=== PATIENT | female | born 1960 | race African-American/Black ===

== ENCOUNTER 2020-06-29 08:32 | Emergency (ER) | payer OTHER ==
--- OUTSIDE RECORDS SUMMARY | 2020-06-29 08:35 | XMS REPORT | Encounter Summary ---
:1960 Author Care Team Providers Name Role Phone Kandi Sands Primary Care Provider [phone] Ganesh Taylor Child Care Counselor [phone] Car Bae MD Neurosurgeon [phone] Mercedez Jaimes (Rheumatologie) Pulp Machine Operator [phone] Reason for Visit None recorded. Instructions 1. Peripheral edema BNP (B-type natriuretic pe ptide), serum or plasma US, echocardiogram 2. Hyperlipidemia CMP, serum or plasma CBC w/ auto diff lipid panel, serum high cholesterol: care ins tructions 3. Body mass index 40+ - severel y obese body mass index: care inst ructions learning about healthy mega ght starting a weight loss marisa n: care instructions when you are overweight: c are instructions obesity education informat ion learning about obesity 4. Bereavement grief (actual/anticipated) : care instructions behavioral health referral Discussion Note: None recorded. Plan of Care Reminders Provider Appointments Est Pt Estela Vallecillo 07/08/2020 MD Verena 10:00AM Lab CMP, Serum or Lab radha [facility] Plasma 04/23/2020 CBC W/ Auto Diff [facility] 04/23/2020 Lipid Panel, [facility] Serum 04/23/2020 BNP (B-type [facility] Natriuretic Peptide), Serum 04/23/2020 or Plasma Referral Behavioral Health Referral 04/22/2020 Procedures None recorded. Surgeries None recorded. Imaging US, [facility] Echocardiogram 04/22/[address] [facility] (Cardiopulmonary ) Medications Name Start Date Advair Diskus 250 mcg-50 mcg/dose powder for inhalatio n INHALE 1 PUFF TWICE DAILY Dexilant 60 mg capsule, delayed release TAKE ONE (1) CAPSULE(S) BY MOUTH DAILY. diazepam 5 mg tablet TAKE ONE (1) TABLET(S) BY MOUTH THREE TIMES A DAY NEEDED FOR SPASMS. diclofenac 1 % topical gel APPLY 2 grams TO THE AFFECTED AREA 3 TO 4 TIMES DAILY NEEDED FOR PAIN diclofenac 75 mg-misoprostol 200 mcg tablet,immediate, delayed release TAKE 1 TABLET BY MOUTH TWICE DAILY dicyclomine 10 mg capsule Take 1 capsule 3 times a day by oral route. fluticasone propionate 50 mcg/actuation nasal spray,fya spension INHALE 2 SPRAY(S) IN EACH NOSTRIL TWICE A DAY BY INTR ANASAL ROUTE FOR 30 DAYS. folic acid 1 mg tablet TAKE 1 TABLET BY ORAL ROUTE 1 TIME PER DAY furosemide 40 mg tablet TAKE ONE (1) TABLET(S) BY MOUTH TWICE A DAY. gabapentin 800 mg tablet TAKE ONE (1) TABLET(S) BY MOUTH FOUR TIMES A DAY FOR 28 DAYS. hydroxychloroquine 200 mg tablet TAKE 1 TABLET BY MOUTH TWICE DAILY leflunomide 20 mg tablet Take 1 tablet every day by oral route for 30 days. levocetirizine 5 mg tablet TAKE 1 TABLET BY ORAL ROUTE 1 TIME PER DAY AT BEDTIME FOR ALLERGIES lisinopril 20 mg-hydrochlorothiazide 25 mg tablet TAKE 1 TABLET(S) TWICE A DAY BY ORAL ROUTE FOR 90 DAY S. metaxalone 800 mg tablet TAKE ONE (1) TABLET(S) BY MOUTH TWICE A DAY. methocarbamol 750 mg tablet TAKE ONE (1) TABLET(S) BY MOUTH THREE TIMES A DAY. montelukast 10 mg tablet TAKE 1 TABLET BY MOUTH EVERY DAY naftifine 2 % topical cream APPLY 2 TO 4 GRAMS TO THE AFFECTED AREA 2 TIMES DAILY (USE ALONG WITH UREA) omeprazole 40 mg capsule,delayed release Take 1 capsule every day by oral route. ondansetron [address] 1 TABLET(S) 3 TIMES A DAY BY TRANSLINGUAL ROUTE DIRECTED. Plavix 75 mg tablet Take 1 tablet every day by oral route. potassium chloride ER 20 mEq tablet,extended release TAKE ONE (1) TABLET(S) BY MOUTH TWICE A DAY. ProAir HFA 90 mcg/actuation aerosol inhaler INHALE 2 PUFFS FOUR TIMES DAILY NEEDED FOR WHEEZIN G Spiriva with HandiHaler 18 mcg and inhalation capsules USE 1 CAPSULE BY INHALATION ROUTE 1 TIME PER DAY sucralfate 1 gram tablet TAKE ONE (1) TABLET(S) BY MOUTH FOUR TIMES A DAY. sumatriptan 25 mg tablet TAKE ONE TABLET BY MOUTH EVERY DAY AT O NSET OF HEADACHE , MAY REPEAT AFTER 2 HOURS IF HEADACHE PERSISTS tizanidine 4 mg tablet TAKE ONE (1) TABLET(S) BY MOUTH THREE TIMES A DAY. trazodone 150 mg tablet TAKE 2 TAB(S) BY MOUTH AT BEDTIME FOR SLEEP urea 40% APPLY 2 TO 4 GRAMS TO THE AFFECTED AREA TWICE DAILY Medications Administered None recorded. Vitals Height Weight BMI Blood Pressure 5 ft 2 in 223 lbs 40.8 kg/m2 110/72 mm[Hg] Results Lab Results Date Name Specimen Result Interpretation Description Value Range Status Address 04/25/2020 CBC W/ Auto Wbc 4.5 3.4-10.8 Final [facility] Diff x10e3/uL x10e3/uL [facility]: [address] Rbc 4.45 3.77-5.28 Final [facility] x10e6/uL x10e6/uL P[facility]: [address] Below Hemoglobin 10.8 g/dL 11.1-15.9 Final [facility] Low g/dL P[facility]: [address] Hematocrit 34.4 % 34.0-46.6 Final [facility] % [facility]: [address] Below Mcv 77 fL 79-97 fL Final [facility] Low PSC: [address] Below Mch 24.3 pg 26.6-33.0 Final [facility] Low pg PSC: [address] Below Mchc 31.4 g/dL 31.5-35.7 Final [facility] Low g/dL P[facility]: [address] Above Rdw 15.6 % 11.7-15.4 Final [facility] High % PSC: [address] Platelets 189 150-450 Final [facility] x10e3/uL x10e3/uL PSC: [address] Neutrophils 40 % not Final [facility] or[facility] estab. % PSC: [address] Lymphs 45 % not Final [facility] estab. % PSC: [address] Monocytes 10 % not Final [facility] estab. % PSC: [address] Eos 3 % not Final [facility] estab. % PSC: [address] Basos 1 % not Final [facility] estab. % PSC: [address] Immature engineer chief Cancelled [facility] or[facility] Cells PSC: [address] Neutrophils 1.8 1.4-7.0 Final Lab radha (Absolute) x10e3/uL x10e3/uL PS C: [address] Lymphs 2.1 0.7-3.1 Final [facility] (Absolute) x10e3/uL x10e3/uL PS C: [address] Monocytes(ab 0.5 0.1-0.9 Final [facility] solute) x10e3/uL x10e3/uL PSC: [address] Eos 0.1 0.0-0.4 Final [facility] (Absolute) x10e3/uL x10e3/uL PS C: [address] Baso 0.0 0.0-0.2 Final [facility] (Absolute) x10e3/uL x10e3/uL PS C: [address] Immature 1 % not Final [facility] Granulocytes estab. % PS C: [address] Immature 0.0 0.0-0.1 Final [facility] Grans (Abs) x10e3/uL x10e3/uL P SC: [address] Nrbc engineer chief Cancelled [facility] PSC: [address] Hematology engineer chief Cancelled [facility] Comments: PSC: [address] 04/25/2020 CMP, Serum or Glucose 92 mg/dL 65-99 Fi nal [facility] Plasma mg/dL PSC: [address] Bun 24 mg/dL 6-24 Final [facility] mg/dL PSC: [address] Creatinine 0.93 0.57-1.00 Final [facility] mg/dL mg/dL PSC: [address] eGFR If 68 >59 Final [facility] Nonafricn AM mL/min/1. mL/min/1. PSC: Shemar [address] eGFR If 78 >59 Final [facility] Africn AM mL/min/1. mL/min/1. P SC: [address] Above BUN/creatini 26 9-23 Final Lab radha High ne Ratio PSC: [address] Sodium 142 134-144 Final [facility] mmol/L mmol/L PSC: [facility] [address] Potassium 3.5 3.5-5.2 Final [facility] mmol/L mmol/L PSC: [facility] [address] Chloride 102 96-106 Final [facility] mmol/L mmol/L PSC: [facility] [address] Carbon 26 mmol/L 20-29 Final [facility] Dioxide, mmol/L PSC: [address] Calcium 9.9 mg/dL 8.7-10.2 Final Lab radha mg/dL PSC: [facility] [address] Protein, 6.8 g/dL 6.0-8.5 Final [facility] Total g/dL PSC: [facility] [address] Albumin 4.3 g/dL 3.8-4.9 Final [facility] g/dL PSC: [facility] [address] Globulin, 2.5 g/dL 1.5-4.5 Final Lab radha Total g/dL PSC: [facility] [address] A/g Ratio 1.7 1.2-2.2 Final [facility] PSC: [facility] [address] Bilirubin, 0.2 mg/dL 0.0-1.2 Final [facility] Total mg/dL PSC: [facility] [address] Alkaline 83 IU/L 39-117 Final [facility] Phosphatase IU/L PSC: [facility] [address] Ast (Sgot) 18 IU/L 0-40 IU/L Final [facility] PSC: [facility] [address] Alt (Sgpt) 16 IU/L 0-32 IU/L Final [facility] PSC: [facility] [address] 04/25/2020 Lipid Panel, Above Cholesterol, 301 mg/dL 100- 199 Final [facility] Serum High Total mg/dL PSC: [address] Above Triglyceride 285 mg/dL 0-149 Final [facility] High s mg/dL PSC: [facility] Normal [address] HDL 79 mg/dL >39 mg/dL Final [facility] Cholesterol PSC: [address] Above VLDL 53 mg/dL 5-40 Final [facility] High Cholesterol mg/dL PSC: [address] Above LDL Chol 169 mg/dL 0-99 Final [facility] High Calc (Nih) mg/dL PSC: 7 [address] Comment: engineer chief Cancelled [facility] PSC: [address] 04/25/2020 BNP (B-type B-type 20.0 0.0-100.0 Tiana l [facility] Natriuretic Natriuretic pg/mL pg/mL PSC: 720 Peptide), Peptide N Augustos nikole Serum or Dr Plasma Alfonso 04/25/2020 Cardiovascular Interpretati note Final [facility] Assessment on Corpor atio Panel, Serum n: [address] [place] Pdf . 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 Low Back Pain Active 08/16/2019 Gastric Ulcer Active 2019 Abnormal Findings on Diagnostic Imaging of Lung Active 12/09/2019 Breast Lump Active 12/09/2019 Bilateral Hip Joint Pain Active 01/03/2020 Bereavement Active 04/22/2020 Edema of Lower Extremity Active 05/01/2020 Obesity Active Asthma Active Procedures Date Name Performed by 11/26/2019 Operation on Lumbar Spine Information no t available 2019 Endoscopy Information not avai lable 06/12/2018 Electrocardiographic Procedure Informati on not available Orthopedic Surgery Information not avai lable 04/22/2020 US, Echocardiogram [facility] (Cardiopulmonary) [address] [place] [address] (Work [address]) Vaccine List Vaccine Type Influenza, injectable, MDCK, quadrivalen t 05/11/20180.5 mL influenza, injectable, quadrivalent, pre servative free 05/10/20190.5 mL pneumococcal conjugate PCV 13 10/03/20190.5 mL pneumococcal polysaccharide PPV23 08/26/2011 Tdap 03/12/2013 Social History Tobacco Smoking Status Never Smoker Past Encounters 04/22/2020 Peripheral Edema; Hyperlipidemia; Body M ass Index 40+ - Severely Obese; Bereavement 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 History of Present Illness Note: <p>Pt c/o swelling of both feet x 1 wk, states she D/C Prednisone 10mg 2 wks ago. Pts wt increased by 11lbs within 2 mths..ap</p><p>pt has has hx of severe RA with multiple joint i nvolvement and prior hx of lumbar and c spine surgeries. she is followed by Rheumatology dr mercedez jaimes, orthopedic spine and pain management. she reports she was recently restarted back on daily oral prednisone for management of her RA. dose recently increased to 10mg /day but she has had increased swelling in extremities. her weight is up 11#. she reports she just stopped the oral prednisone because did not like side effects but now she has multiple joint pain. she also expresses that she her recently unexpectedly from heart related issues. was in ICU and then life flighted but latedpassed. </p> Review of Systems Comprehensive General Adult ROS Reported By: Patient Constitutional: Constitutional: no fever, no significant weight loss, no chills, no malaise, weight g ain (11lbs) Cardiovascular: Cardiovascular: no chest yamileth n, no arm pain on exertion, no shortness of breath when wal maurice, no shortness of breath when lying down, no palpitations, ankle swelling Respiratory: Respiratory: no cough, no wh eezing, no shortness of breath Gastrointestinal: Gastrointestinal: no abdomin al pain, not vomiting blood Musculoskeletal: Musculoskeletal: arthralgias /joint pain, swelling in the extremities Integumentary: Skin: no rashes, no non-heal ing areas Neurologic: Neurologic: no weakness, no dizziness, no headaches Endocrine: Endocrine: no fatigue Hematologic/Lymphatic: Hematologic/Lymphatic no swo llen glands Physical Exam General Adult Exam Reported By: Patient Constitutional: General Appearance: obese; c hronically ill. Level of Distress: NAD. Ambulation: ambulating grzegorz lly Psychiatric: Insight: good judgement. Men sb Status: active and alert, depressed. Orientation: to t miriam, to place, to person. Memory: recent memory normal, remote memory normal Eyes: Lids and Conjunctivae: non-i njected, no pallor. Sclerae: non-icteric Lungs: Respiratory effort: no dyspn ea. Percussion: no dullness, flatness, or hyperresonance. Auscultat ion: breath sounds normal, good air movement, no wheezing, no ra les/crackles, no rhonchi Cardiovascular: Heart Auscultation: RRR, no murmurs Musculoskeletal:: Joints, Bones, and Muscles: tenderness. Extremities: edema; negative reynaldo sign Neurologic: Gait and Station: normal gai t, normal station. Coordination and Cerebellum: no tremor Skin: Inspection and palpation: no rash, no lesions
[2020-06-29] MEDS ORDERED: HYDROMORPHONE HCL 1 MG/ML INJ ONE (09:48)
[2020-06-29] MEDS ORDERED: DIAZEPAM 10 MG/2 ML INJ SYRINGE ONE (09:48)
[2020-06-29] MEDS ORDERED: dexAMETHasone 10 MG/ML VIAL ONE (09:49)
[2020-06-29] MEDS ORDERED: KETOROLAC 30 MG/ML INJ ONE (09:49)
--- NOTE | 2020-06-29 10:35 | RAD REPORT ---
EXAM DESCRIPTION: CT - Spine Lumbar Wo Con - 06/29/2020 10:15 am CLINICAL HISTORY: low back pain with radiation into right lower extremity, hx of surgeryApril 2027 COMPARISON: CT abdomen and pelvis October 2015 TECHNIQUE: Thin section axial imaging of the lumbar spine was performed. Sagittal and coronal recon struction images were generated and reviewed. All CT scans are performed using dose optimization technique as appropriate and may include automated exposure control or mA/KV adjustment according to patient size. FINDINGS: Lumbar bodies are normal in height. L4-S1 fusion changes are present. No fracture or posit ion abnormality of the pedicle screws and rods. There is slight retrolisthesis of L1 on L2 and T12 on L1. No destructive process to suspect osteomyelitis or discitis. There is degenerative gas at all di sc levels. Graft material is present in the L4-5 and L5-S1 disc levels. Bony union is incomplete, not unexpected for the length of surgery. There has been partial resection of the L1 spinous process. Th e L2 -L5 spinous processes have been resected along with portions of each pedicle. At T11-12 there is facet joint hypertrophy, thickening and calcification of the posterior ligaments a s well as disc bulge, endplate spurring and calcifications causing central spinal stenosis down to 6 mm. Foraminal stenosis is likely present. T12-L1 shows disc bulge and endplate spurring that causes bilateral foraminal stenosis. No central sp inal stenosis. L1-2 shows disc bulge and endplate spurring. There is prominent calcifications along the annulus of t he disc along with facet degenerative change. Spinal stenosis to 7- 8 mm noted. Bilateral foraminal s tenosis present. L2-3 level shows prominent spurring along the inferior endplate L2 with calcification of the annulus. Prominent disc bulge is present in the left exit foramen. L3-4 level shows prominent disc bulge and endplate spurring across the central canal and into each ex it foramen. Central canal detail is inherently limited. However, there does appear to be extruded dis c material extending superiorly along the L3 posterior wall to the level of the L3 lateral recess. Th ere is flattening of the thecal sac. No central spinal stenosis present there is likely foraminal leelee nosis and mass effect on the right L3 nerve root. L4-5 level shows disc bulge and endplate spurring across the central canal. Bony foraminal encroachme nt is present bilaterally. Heterotopic bone is present at the facet joints. This is a fused level. L5-S1 level shows bony hypertrophy along the facet joints. Posterior endplate spurring changes are pr esent. There is prominent bony hypertrophy causing left foraminal stenosis and to a slightly lesser d egree right foraminal stenosis. Overall central canal detail is limited on CT. This is particularly true spanning L4- superior S1 reg ion. Incidental note made of horseshoe kidney. IMPRESSION: No compression fracture or acute bone process seen. No CT finding to suspect discitis or osteomyelitis. Patient has extensive degenerative change and postsurgical change as detailed. Multiple findings are possible sources for right leg radiculopathy. Significant central spinal stenosis present at T11-12 down to 6 mm. Spinal stenosis to 7-8 mm at the L1-2 level. L3-4 shows evidence for significant disc herniation with extruded disc material extending superiorly. There is likely mass-effect on the right L3 nerve root. L4-5 and L5-S1 levels show prominent endplate hypertrophy causing bony foraminal stenosis.
[2020-06-29] MEDS ORDERED: LORazepam 2 MG/ML VIAL ONE (10:52)
[2020-06-29] MEDS ORDERED: FENTANYL CITR 100 MCG/2 ML ONE (10:53)
[2020-06-29] MEDS ORDERED: KETAMINE HCL 500 MG/5 ML VIAL ONE (11:59)
--- NOTE | 2020-06-29 12:07 | ER ---
Nurse's Notes [facility] Name: Marycarmen Salgado Age: 59 yrs Sex: Female : 1960 Arrival Date: 06/29/2020 Time: 08:36 Bed 8 Private MD: Diagnosis: Sciatica, right side Presentation: 06/29 08:42 Chief complaint: Patient states: right groin pain radiating down front of right leg, iw called Dr. Encarnacion yesterday and told him she was having increasing pain and was told to come to ER, had back surgery in October. Coronavirus screen: At this time, the client does not indicate any symptoms associated with coronavirus-19. Ebola Screen: Patient negative for fever greater than or equal to 101.5 degrees Fahrenheit, and additional compatible Ebola Virus Disease symptoms Patient denies exposure to infectious person. Patient denies travel to an Ebola-affected area in the 21 days before illness onset. No symptoms or risks identified at this time. Initial Sepsis Screen: Does the patient meet any 2 criteria? No. Patient's initial sepsis screen is negative. Does the patient have a suspected source of infection? No. Patient's initial sepsis screen is negative. Risk Assessment: Do you want to hurt yourself or someone else? Patient reports no desire to harm self or others. Onset of symptoms was June 28, 2020. 08:42 Method Of Arrival: Wheelchair iw 08:42 Acuity: JAILENE 3 iw Historical: - Allergies: 08:48 Sulfa (Sulfonamide Antibiotics); iw - Home Meds: 08:48 hydrocodone-acetaminophen 10-325 mg Oral tab 1 tab every 6 hours [Active]; gabapentin iw 800 mg oral tab four times a day [Active]; leflunomide 20 mg oral tab 1 tab once daily [Active]; metaxalone 800 mg oral tab twice a day [Active]; diclofenac-misoprostol 75-200 mg-mcg oral TbID 1 tab 2 times per day [Active]; hydroxychloroquine 200 mg oral tab 1 tab twice a day [Active]; sucralfate 1 gram Oral tab 1 tab 4 times per day [Active]; lisinopril-hydrochlorothiazide 20-25 mg oral tab 1 tab once daily [Active]; trazodone 150 mg Oral tab 2 tabs nightly [Active]; montelukast 10 mg oral tab 1 tab once daily [Active]; folic acid 1 mg Oral tab 1 tab once daily [Active]; Dexilant 60 mg oral CpDB 1 cap once daily [Active]; Advair Diskus 250-50 mcg/dose Inhl dsdv 1 puff 2 times per day [Active]; Spiriva with HandiHaler 18 mcg inhalation CpDv 1 cap once daily [Active]; ProAir HFA 90 mcg/actuation inhalation HFAA 2 puffs every 6 hours [Active]; Rituxan 10 mg/mL intravenous conc every 2-3 weeks [Active]; - PMHx: 08:48 Fibromyalgia; GERD; Hypertension; Rheumatoid Arthritis; iw - PSHx: 08:48 ; back; Knee surgery; neck; iw - Immunization history:: Adult Immunizations up to date. - Social history:: Smoking status: Patient denies any tobacco usage or history of. Screenin:11 Abuse screen: Denies threats or abuse. Nutritional screening: No deficits noted. tw2 Tuberculosis screening: No symptoms or risk factors identified. Fall Risk None identified. Assessment: 08:50 General: Appears in no apparent distress. uncomfortable, obese, well groomed, Behavior tw2 is calm, cooperative, appropriate for age. Pain: Complains of pain in back, b/l legs. Neuro: Level of Consciousness is awake, alert, obeys commands, Oriented to person, place, time, situation. Cardiovascular: Heart tones S1 S2 Patient's skin is warm and dry. Respiratory: Airway is patent Respiratory effort is even, unlabored, Respiratory pattern is regular, symmetrical, Breath sounds are clear bilaterally. GI: No signs and/or symptoms were reported involving the gastrointestinal system. Abdomen is round non-distended, obese, Bowel sounds present X 4 quads. : No signs and/or symptoms were reported regarding the genitourinary system. EENT: No signs and/or symptoms were reported regarding the EENT system. Derm: No signs and/or symptoms reported regarding the dermatologic system. Musculoskeletal: Range of motion: intact in all extremities, Reports pain in back and b/l legs. 09:10 Reassessment: provider at bedside at this time. tw2 10:35 Reassessment: No changes from previously documented assessment. Patient and/or family tw2 updated on plan of care and expected duration. Pain level reassessed. pt environmental health aide light states "my pain isnt any better", provider notified and medicated as ordered Patient states symptoms have not improved. 11:00 Reassessment: No changes from previously documented assessment. Patient and/or family tw2 updated on plan of care and expected duration. Pain level reassessed. Patient states symptoms have not improved. 11:55 Reassessment: No changes from previously documented assessment. Patient and/or family tw2 updated on plan of care and expected duration. Pain level reassessed. pt drowsy at this time states "it hurts it hurts it hurts", face is relaxed provider notified. 12:02 Reassessment: pt moaning outloud at this time, pt environmental health aide light states "this pain is tw2 killing me", provider notified. 12:16 Reassessment: pt environmental health aide light states "my leg is hurting me", provider notified. tw2 Patient states symptoms have not improved. 12:24 Reassessment: pt environmental health aide light, states "my pain is not any better", provider notified. tw2 Patient states symptoms have not improved. 12:29 Reassessment: pt environmental health aide light "can you please get him back in here", provider notified.tw2 12:32 Reassessment: provider at bedside talking with pt at this time. tw2 13:10 Reassessment: No changes from previously documented assessment. Patient and/or family tw2 updated on plan of care and expected duration. Pain level reassessed. Patient states symptoms have not improved. Vital Signs: 08:42 BP 165 / 110; Pulse 75; Resp 16; Temp 98.3; Pulse Ox 98% ; Weight 96.16 kg; Height 5 iw ft. 3 in. (160.02 cm); Pain 10/10; 10:05 BP 116 / 66; Pulse 62; Resp 17; Pulse Ox 98% on R/A; tw2 11:00 BP 137 / 73; Pulse 64; Resp 17; Pulse Ox 100% on R/A; tw2 11:53 BP 127 / 79; Pulse 70; Resp 16; Pulse Ox 100% on R/A; tw2 13:10 BP 139 / 74; Pulse 72; Resp 17; Pulse Ox 100% on R/A; tw2 08:42 Body Mass Index 37.55 (96.16 kg, 160.02 cm) iw ED Course: 08:36 Patient arrived in ED. bg2 08:44 Triage completed. iw 08:49 Bed in low position. Call light in reach. Pulse ox on. NIBP on. tw2 08:50 Masood Schmidt, CRISTÓBAL is Primary Nurse. jl7 09:05 Judd Santos PA is PHCP. jmm 09:06 Billy Mackey MD is Attending Physician. jmm 09:11 Arm band placed on. tw2 09:50 Inserted saline lock: 22 gauge in right antecubital area, using aseptic technique. tw2 Blood collected. 09:51 IV discontinued, intact, bleeding controlled, No redness/swelling at site. Pressure tw2 dressing applied. 09:52 Inserted saline lock: 22 gauge in left antecubital area, using aseptic technique. tw2 10:15 CT Lumbar Spine Wo Con In Process Unspecified. EDMS 13:10 No provider procedures requiring assistance completed. IV discontinued, intact, tw2 bleeding controlled, No redness/swelling at site. Pressure dressing applied, to LEFT AC. Administered Medications: 09:50 Drug: Ketorolac 30 mg Route: IVP; Site: right antecubital; tw2 09:51 Follow up: Response: infiltration noted after NS flush, provider notified. tw2 09:52 Drug: Valium 5 mg Route: IVP; Site: left antecubital; tw2 10:35 Follow up: Response: No adverse reaction; Pain is unchanged, physician notified tw2 09:54 Drug: Dilaudid 1 mg {Note: RASS 0.} Route: IVP; Site: left antecubital; tw2 10:35 Follow up: Response: No adverse reaction; Pain is unchanged, physician notified; RASS: tw2 Alert and Calm (0) 09:58 Drug: Decadron - Dexamethasone 10 mg Route: IVP; Site: left antecubital; tw2 10:50 Follow up: Response: No adverse reaction tw2 10:46 Drug: Ativan 1 mg Route: IVP; Site: left antecubital; tw2 11:38 Follow up: Response: No adverse reaction; No change in condition tw2 10:48 Drug: fentaNYL (PF) 50 mcg {Note: RASS 0.} Route: IVP; Site: left antecubital; tw2 11:38 Follow up: Response: No adverse reaction; Pain is unchanged, physician notified; RASS: tw2 Alert and Calm (0) 11:41 CANCELLED (other dose noted): Ketamine 0.5 mg/kg IVP once [facility] 11:47 Drug: Ketamine 50 mg Route: IVP; Site: left antecubital; tw2 12:01 Follow up: Response: No adverse reaction; Pain is unchanged, physician notified tw2 12:34 Drug: fentaNYL (PF) 50 mcg {Note: RASS 0.} Route: IVP; Site: left antecubital; tw2 13:00 Follow up: Response: No adverse reaction; Pain is unchanged, physician notified; RASS: tw2 Alert and Calm (0) 12:37 Not Given (Duplicate Order): fentaNYL (PF) 50 mcg IVP once; RASS on ADMIN: Combtv4, tw2 Very Agttd3, Agttd2, Rstlss1, AlertClm0, Drwsy-1, Lt Sdtn-2, Mod Sdtn-3, Dp Sdtn-4, UnArsble-5 Outcome: 12:06 Discharge ordered by . [facility] 13:11 Discharged to home via wheelchair, with family. tw2 13:11 Condition: stable 13:11 Discharge instructions given to patient, Instructed on discharge instructions, follow up and referral plans. no drinking with medication, no driving heavy equipment, medication usage, Demonstrated understanding of instructions, follow-up care, medications, Prescriptions given X 2. 13:11 Patient left the ED. tw2 Signatures: Dispatcher [employer] EDMS Judd Santos PA PA [facility] Chica Calderón RN RN iw Davina Angel 2 Odalys Richter RN RN tw2 Masood Schmidt RN RN jl7 Corrections: (The following items were deleted from the chart) 08:49 08:42 Pulse 75bpm; Resp 16bpm; Pulse Ox 98%; Temp 98.3F; 96.16 kg; Height 5 ft. 3 in.; iw BMI: 37.5; Pain 10/10; iw
--- NOTE | 2020-06-29 12:07 | EDPHYS ---
Physician Documentation [facility] Name: Marycarmen Salgado Age: 59 yrs Sex: Female : 1960 Arrival Date: 06/29/2020 Time: 08:36 Bed 8 Private MD: ED Physician Billy Mackey HPI: 06/29 09:24 This 59 yrs old Black Female presents to ER via Wheelchair with complaints of low back jmm pain. 09:24 The patient presents with pain that is chronic. The symptoms are located in the low jmm back. Modifying factors: The patient symptoms are alleviated by nothing, the patient symptoms are aggravated by movement. This is a 59 year old female with a history of fibromyalgia, GERD< HTN, RA that presents to the ED with radicular back pain to the right leg beginning this past Tuesday. Patient was evaluated at another ED and discharged. Patient has been unable to contact her spine surgeon. Patient contacted Dr. Encarnacion whom advised to go to the ED for pain control. Patient denies bowel or bladder issues. Denies fever. . Historical: - Allergies: 08:48 Sulfa (Sulfonamide Antibiotics); iw - Home Meds: 08:48 hydrocodone-acetaminophen 10-325 mg Oral tab 1 tab every 6 hours [Active]; gabapentin iw 800 mg oral tab four times a day [Active]; leflunomide 20 mg oral tab 1 tab once daily [Active]; metaxalone 800 mg oral tab twice a day [Active]; diclofenac-misoprostol 75-200 mg-mcg oral TbID 1 tab 2 times per day [Active]; hydroxychloroquine 200 mg oral tab 1 tab twice a day [Active]; sucralfate 1 gram Oral tab 1 tab 4 times per day [Active]; lisinopril-hydrochlorothiazide 20-25 mg oral tab 1 tab once daily [Active]; trazodone 150 mg Oral tab 2 tabs nightly [Active]; montelukast 10 mg oral tab 1 tab once daily [Active]; folic acid 1 mg Oral tab 1 tab once daily [Active]; Dexilant 60 mg oral CpDB 1 cap once daily [Active]; Advair Diskus 250-50 mcg/dose Inhl dsdv 1 puff 2 times per day [Active]; Spiriva with HandiHaler 18 mcg inhalation CpDv 1 cap once daily [Active]; ProAir HFA 90 mcg/actuation inhalation HFAA 2 puffs every 6 hours [Active]; Rituxan 10 mg/mL intravenous conc every 2-3 weeks [Active]; - PMHx: 08:48 Fibromyalgia; GERD; Hypertension; Rheumatoid Arthritis; iw - PSHx: 08:48 ; back; Knee surgery; neck; iw - Immunization history:: Adult Immunizations up to date. - Social history:: Smoking status: Patient denies any tobacco usage or history of. ROS: 09:24 Constitutional: Negative for fever, chills, and weight loss, Cardiovascular: Negative jmm for chest pain, palpitations, and edema, Respiratory: Negative for shortness of breath, cough, wheezing, and pleuritic chest pain. 09:24 Back: Positive for pain with movement. 09:24 All other systems are negative. Exam: 09:24 Constitutional: This is a well developed, well nourished patient who is awake, alert, jmm and in no acute distress. Head/Face: atraumatic. Eyes: EOMI, no conjunctival erythema appreciated ENT: Moist Mucus Membranes Neck: Trachea midline, Supple Chest/axilla: Normal chest wall appearance and motion. Cardiovascular: Regular rate and rhythm. No edema appreciated Respiratory: Normal respirations, no respiratory distress appreciated Abdomen/GI: Non distended, soft 09:24 Back: pain, that is moderate, ROM is painful, vertebral tenderness, is appreciated at L2, L3 and L4. 09:24 Musculoskeletal/extremity: ROM: intact in all extremities. 09:24 Skin: Appearance: Color: normal in color. 09:24 Neuro: extensor hallucis longus intact bilaterally. 09:24 Psych: Behavior/mood is cooperative, anxious. Vital Signs: 08:42 BP 165 / 110; Pulse 75; Resp 16; Temp 98.3; Pulse Ox 98% ; Weight 96.16 kg; Height 5 iw ft. 3 in. (160.02 cm); Pain 10/10; 10:05 BP 116 / 66; Pulse 62; Resp 17; Pulse Ox 98% on R/A; tw2 11:00 BP 137 / 73; Pulse 64; Resp 17; Pulse Ox 100% on R/A; tw2 11:53 BP 127 / 79; Pulse 70; Resp 16; Pulse Ox 100% on R/A; tw2 13:10 BP 139 / 74; Pulse 72; Resp 17; Pulse Ox 100% on R/A; tw2 08:42 Body Mass Index 37.55 (96.16 kg, 160.02 cm) iw MDM: 09:13 Patient medically screened. [facility] 12:03 Data reviewed: vital signs, nurses notes. Counseling: I had a detailed discussion with [facility] the patient and/or guardian regarding: the historical points, exam findings, and any diagnostic results supporting the discharge/admit diagnosis, radiology results, the need for outpatient follow up, to return to the emergency department if symptoms worsen or persist or if there are any questions or concerns that arise at home. ED course: Pain appear relieved after reevaluation. Patient still states no decrease in her pain. I reviewed imaging studies. Extensor hallucis longus intact. I do not suspect cord compression. Most likely sciatica. Patient advised to follow up with spine surgeon and otherwise given strict return precautions. . 06/29 09:45 Order name: CT Lumbar Spine Wo Con; Complete Time: 10:36 [facility] 06/29 09:13 Order name: Saline Lock; Complete Time: 10:02 [facility] Administered Medications: 09:50 Drug: Ketorolac 30 mg Route: IVP; Site: right antecubital; tw2 09:51 Follow up: Response: infiltration noted after NS flush, provider notified. tw2 09:52 Drug: Valium 5 mg Route: IVP; Site: left antecubital; tw2 10:35 Follow up: Response: No adverse reaction; Pain is unchanged, physician notified tw2 09:54 Drug: Dilaudid 1 mg {Note: RASS 0.} Route: IVP; Site: left antecubital; tw2 10:35 Follow up: Response: No adverse reaction; Pain is unchanged, physician notified; RASS: tw2 Alert and Calm (0) 09:58 Drug: Decadron - Dexamethasone 10 mg Route: IVP; Site: left antecubital; tw2 10:50 Follow up: Response: No adverse reaction tw2 10:46 Drug: Ativan 1 mg Route: IVP; Site: left antecubital; tw2 11:38 Follow up: Response: No adverse reaction; No change in condition tw2 10:48 Drug: fentaNYL (PF) 50 mcg {Note: RASS 0.} Route: IVP; Site: left antecubital; tw2 11:38 Follow up: Response: No adverse reaction; Pain is unchanged, physician notified; RASS: tw2 Alert and Calm (0) 11:41 CANCELLED (other dose noted): Ketamine 0.5 mg/kg IVP once [facility] 11:47 Drug: Ketamine 50 mg Route: IVP; Site: left antecubital; tw2 12:01 Follow up: Response: No adverse reaction; Pain is unchanged, physician notified tw2 12:34 Drug: fentaNYL (PF) 50 mcg {Note: RASS 0.} Route: IVP; Site: left antecubital; tw2 13:00 Follow up: Response: No adverse reaction; Pain is unchanged, physician notified; RASS: tw2 Alert and Calm (0) 12:37 Not Given (Duplicate Order): fentaNYL (PF) 50 mcg IVP once; RASS on ADMIN: Combtv4, tw2 Very Agttd3, Agttd2, Rstlss1, AlertClm0, Drwsy-1, Lt Sdtn-2, Mod Sdtn-3, Dp Sdtn-4, UnArsble-5 Disposition: 14:21 Co-signature as Attending Physician, Billy Mackey MD. rn Disposition: 06/29/20 12:06 Discharged to Home. Impression: Sciatica, right side. - Condition is Stable. - Discharge Instructions: Sciatica. - Prescriptions for Zanaflex 4 mg Oral Tablet - take 1 tablet by ORAL route every 8 hours As needed; 20 tablet. Medrol (Hiro) 4 mg Oral Tablets, Dose Pack - take 1 tablet by ORAL route as directed - follow package instructions; 1 packet. - Medication Reconciliation Form, Thank You Letter, Antibiotic Education, Prescription Opioid Use form. - Follow up: Private Physician; When: Tomorrow; Reason: Recheck today's complaints, Continuance of care, Re-evaluation by your physician. Signatures: Dispatcher [employer] EDMS Judd Santos PA PA jmm Williams, Irene, RN Billy Chaudhary MD MD rn Wise, Tara, RN RN tw2 Corrections: (The following items were deleted from the chart) 11:41 11:40 Ketamine 0.5 mg/kg IVP once ordered. dylan richardson 13:11 12:06 06/29/2020 12:06 Discharged to Home. Impression: Sciatica, right side. Condition tw2 is Stable. Forms are Medication Reconciliation Form, Thank You Letter, Antibiotic Education, Prescription Opioid Use. Follow up: Private Physician; When: Tomorrow; Reason: Recheck today's complaints, Continuance of care, Re-evaluation by your physician. dylan
[2020-06-29 14:21] VITALS: TEMP 98.3
[2020-06-29 14:24] VITALS: O2SAT 100
[2020-06-29 14:34] VITALS: BP 139/74
== END 2020-06-29 13:11 | disposition home or self-care (01) ==
LOC: ER 08:32
DX: M54.41 Lumbago with sciatica, right side (principal); M79.7 Fibromyalgia; K21.9 Gastro-esophageal reflux disease without esophagitis; I10 Essential (primary) hypertension; M06.9 Rheumatoid arthritis, unspecified
CPT/HCPCS: 72131; 99284; J3360; J3010; J1100; J1170